=== PATIENT | female | born 2000 | race Caucasian/White ===

== ENCOUNTER 2024-07-31 14:22 | Emergency (ER) | payer OTHER ==
--- OUTSIDE RECORDS SUMMARY | 2024-07-31 14:33 | XMS REPORT | Continuity of Care Document ---
Author Name Unknown Address [address] [facility] [address] [place] [address] [facility] thconnect Address [address] [facility] [address] [place] [address] Care Team Providers Care Box Liner Name Role Phone Justino Mueller Primary Care Physician Un available Doctor Unassigned, [place] Attending Clinician U MYRIAM Rivera Attending Clinician Unavailable GC_GCBZW_Kadiyala_S Attending Clinician Unavaila ble Kadiyala, Karuna K Attending Clinician Unavaila ble YARIMA, WAKILI S Attending Clinician Unavailable JUSTINO CEBALLOS Attending Clinician Unavailab LUIS Freeman Attending Clinician Unavail able GC_GCBZW_Kadiyala_S Admitting Clinician Unavaila ble Kadiyala, Karuna K Admitting Clinician Unavaila ble YARIMA, WAKILI S Admitting Clinician Unavailable Payers Payer Name Policy Type Policy Number Effective Date Expirati on Date Source [facility] [id number] Problems Condition Name Condition Details Condition Category Status Onset Date Resolution Date Last Treatment Date Treating Clinician Comments Source Allergic reaction to drug, initial encounter Allergic reaction to drug, initial encounter Disease Active - 00:00: 00 Overview: Formattin g of this note might be different from the original. acute [facility] Left lower quadrant pain Left Lower Quadrant Pain Problem Active 2022-0 7-08 00:00: 00 [facility] Lump in upper outer quadrant of right breast Lump in Upper Outer Quadrant of Right Breast Problem Active 7-08 00:00: 00 [facility] Gynecologi carlo examinatio n abnormal Gynecologi carlo Examinatio n Abnormal Problem Active 7-08 00:00: 00 [facility] Deep pain on intercours e Deep Pain on Intercours e Problem Active 2020-09 1-23 00:00: 00 [facility] Dysmenorrh ea Dysmenorrh ea Problem Active 4- 00:00: 00 [facility] Polymenorr hea Polymenorr hea Problem Active 4- 00:00: 00 [facility] Excessive menstruati on with irregular cycle Excessive Menstruati on with Irregular Cycle Problem Active 4- 00:00: 00 [facility] Essential hypertensi on Essential Hypertensi on Problem Active 3-16 00:00: 00 [facility] Irregular periods Irregular Periods Problem Active 3-16 00:00: 00 [facility] Active immunizati on Active Immunizati on Problem Active 3-16 00:00: 00 [facility] Pelvic and perineal pain Pelvic and Perineal Pain Problem Active 3-16 00:00: 00 [facility] Polycystic ovary syndrome Polycystic Ovary Syndrome Problem Active 3-16 00:00: 00 [facility] Body mass index 30+ - obesity Body Mass Index 30+ - Obesity Problem Active 3-16 00:00: 00 [facility] Severe obesity Severe Obesity Problem Active 3-16 00:00: 00 [facility] BMI 40.0-44.9, adult BMI 40.0-44.9, adult Disease Active 1-05 00:00: 00 [facility] Well woman exam Well woman exam Disease Active 2018-09 00:00: 00 [facility] Encounter for initial prescripti on of injectable contracept javier Encounter for initial prescripti on of injectable contracept javier Disease Active 2018-09 00:00: 00 [facility] Morbid obesity Morbid obesity Disease Active 2018-09 00:00: 00 [facility] Allergies, Adverse Reactions, Alerts Allergy Name Allergy Type Status Severity Reaction(s) Onset Date Inactive Date Treating Clinician Comments Source AMOXICIL COURTNEY DRUG INGREDI Active Rash 03-24 00:00: 00 [facility] Amoxicil courtney Propensi ty to adverse reaction s Active Rash 03-24 00:00: 00 [facility] No Known Allergie s DA Active U 2021-09 0 00:00: 00 [facility] NO KNOWN ALLERGIE S Drug Class Active [facility] PENICILL INS Allergy to substanc e Active [facility] Social History Social Habit Start Date Stop Date Quantity Comments Source [facility]coh[facility] intake 2024-03-24 00:00:00 2024-03-24 00:00:00 Ex-drinker (finding) [facility] History of Social function 2020-09-15 00:00:00 2020-09-15 00:00:00 [facility] Tobacco use and exposure 2019-08-20 00:00:00 2019-08-20 00:00:00 Smokeless tobacco non-user [facility] Sex assigned at 2002 00:00:00 2000 00:00:00 [facility] Smoking Status Start Date Stop Date Source Smoker, Current Status Unknown [facility] Never smoked tobacco [facility] Medications Ordered Medication Name Filled Medication Name Start Date Stop Date Current Medication? Ordering Clinician Indication Dosage Frequency Signature (SIG) Comments Components Source meclizine (TRAVEL-EAS E (MECLIZINE) ) tablet 25 mg 03-24 19:45: 00 03-24 19:45 :00 No 25mg 25 mg, Oral, ONCE, 1 dose, On 03/24/24 at 1445, DION [facility] meclizine 25 mg tablet 03-24 00:00: 00 Yes [id number] 25mg Take 1 tablet by mouth 3 (three) times daily as needed (itching). [facility] losartan 100 mg tablet 09-15 13:44: 06 Yes 100mg Take 100 mg by mouth daily. [facility] trazodone HCl (TRAZODONE ORAL) 09-15 13:44: 06 Yes Take by mouth. [facility] norgestimat e-ethinyl estradioL 0.18/0.215/ 0.25 mg-25 mcg tablet 09-15 00:00: 00 Yes [id number] 1{tbl} Take 1 tablet by mouth daily. [facility] NUVARING (NUVARING) 0.12-0.015 mg/24 hr vaginal insert 2019-09 0 00:00: 00 Yes [id number] 1{each} Insert 1 Each into vagina once every month. Insert vaginally and leave in place for 3 consecutiv e weeks, then remove for 1 week. [facility] NUVARING (NUVARING) 0.12-0.015 mg/24 hr vaginal insert 9 00:00: 00 Yes [id number] 1{each} Insert 1 Each into vagina once every month. Insert vaginally and leave in place for 3 consecutiv e weeks, then remove for 1 week. [facility] albuterol sulfate HFA 90 mcg/actuati on aerosol inhaler INHALE 2 PUFFS BY MOUTH EVERY 4 HOURS NEEDED albuterol sulfate HFA 90 mcg/actuati on aerosol inhaler INHALE 2 PUFFS BY MOUTH EVERY 4 HOURS NEEDED No albuterol sulfate HFA 90 mcg/actuat ion aerosol inhaler INHALE 2 PUFFS BY MOUTH EVERY 4 HOURS NEEDED [facility] naproxen 500 mg tablet 1 tablet with food or milk as needed; three times a day; 10 days naproxen 500 mg tablet 1 tablet with food or milk as needed; three times a day; 10 days No naproxen 500 mg tablet 1 tablet with food or milk as needed; three times a day; 10 days [facility] Nexplanon 68 mg subdermal implant Inject 1 implant by subcutaneou s route. Nexplanon 68 mg subdermal implant Inject 1 implant by subcutaneou s route. No 1implan t(s) Nexplanon 68 mg subdermal implant Inject 1 implant by subcutaneo us route. [facility] Immunizations Ordered Immunization Name Filled Immunization Name Date Status Comments Source HIB 4 Dose Schedule Unknown Completed [facility] HPV Unknown Completed [facility] Influenza Virus Vaccine Unknown Completed [facility] Meningococcal Vaccine Unknown Completed [facility] MMR Unknown Completed [facility] Pneumococcal 13 Conjugate, PCV13 (Prevnar 13) Unknown Completed [facility] Polio (IPV/OPV) Unknown Completed [facility] TDAP Unknown Completed [facility] Varicella (varivax)(chicken pox) Unknown Completed [facility] DTAP Unknown Completed [facility] HIB 4 Dose Schedule Unknown Completed [facility] HEPATITIS A Unknown Completed [facility] Hep B, Adol or Pedi Dosage Unknown Completed [facility] HPV Unknown Completed [facility] Influenza Virus Vaccine Unknown Completed [facility] Meningococcal Vaccine Unknown Completed [facility] MMR Unknown Completed [facility] Pneumococcal 13 Conjugate, PCV13 (Prevnar 13) Unknown Completed [facility] Polio (IPV/OPV) Unknown Completed [facility] TDAP Unknown Completed [facility] Varicella (varivax)(chicken pox) Unknown Completed [facility] DTAP Unknown Completed [facility] HEPATITIS A Unknown Completed [facility] Hep B, Adol or Pedi Dosage Unknown Completed [facility] Vital Signs Vital Name Observation Time Observation Value Comments S ource BP Diastolic 2024-06-25 00:00:00 77 mm[Hg] [facility] Body Weight 2024-06-25 00:00:00 169.8 [lb_av] [facility] BMI (Body Mass Index) 2024-06-25 00:00:00 28.3 kg/m2 [facility] Height 2024-06-25 00:00:00 65 [in_i] [facility] BP Systolic 2024-06-25 00:00:00 129 mm[Hg] [facility] Body Weight 2024-05-15 00:00:00 169.8 [lb_av] [facility] Height 2024-05-15 00:00:00 65 [in_i] [facility] BP Diastolic 2024-05-15 00:00:00 76 mm[Hg] [facility] BP Systolic 2024-05-15 00:00:00 115 mm[Hg] [facility] BMI (Body Mass Index) 2024-05-15 00:00:00 28.3 kg/m2 [facility] BP Diastolic 2024-04-30 00:00:00 65 mm[Hg] [facility] Height 2024-04-30 00:00:00 65 [in_i] [facility] BP Systolic 2024-04-30 00:00:00 113 mm[Hg] [facility] BMI (Body Mass Index) 2024-04-30 00:00:00 28.3 kg/m2 [facility] Body Weight 2024-04-30 00:00:00 169.8 [lb_av] [facility] Systolic blood pressure 2024-03-24 19:42:00 136 mm[Hg] [facility] Diastolic blood pressure 2024-03-24 19:42:00 69 mm[Hg] [facility] Heart rate 2024-03-24 19:42:00 83 /min [facility] Body temperature 2024-03-24 19:42:00 36.89 Rachel [facility] Respiratory rate 2024-03-24 19:42:00 16 /min [facility] Body height 2024-03-24 19:42:00 165.1 cm [facility] Body weight 2024-03-24 19:42:00 77.111 kg [facility] BMI 2024-03-24 19:42:00 28.29 kg/m2 [facility] Oxygen saturation in Arterial blood by Pulse oximetry 2024-03-24 19:42:00 97 /min [facility] BP Systolic 2024-03-05 00:00:00 124 mm[Hg] [facility] Body Weight 2024-03-05 00:00:00 167.2 [lb_av] [facility] BMI (Body Mass Index) 2024-03-05 00:00:00 27.8 kg/m2 [facility] BP Diastolic 2024-03-05 00:00:00 72 mm[Hg] [facility] Height 2024-03-05 00:00:00 65 [in_i] [facility] Encounters Start Date/Time End Date/Time Encounter Type Admission Type Attending Clinicians Care Facility Care Department Encounter ID Source 2024-06-25 00:00:00 2024-06-25 00:00:00 MALINDA Macdonald: [address], [place] [address] , Ph. [facility] - GC_GCBZW_Katrin emily Branch* [id number] [facility] 2024-05-15 00:00:00 2024-05-15 00:00:00 MALINDA Farrell: [address], [place] [address] , Ph. [facility] GC_GCBZW_Katrin Branch* [id number] [facility] 2024-03-28 00:00:00 2024-05-04 18:25:48 Patient Secure Msg Doctor Unassigned, [place] Doctor Unassigned, [place] [facility] .[id number] [facility] 2024-04-30 00:00:00 2024-04-30 00:00:00 MALINDA Macdonald: [address], [place] [address] , Ph. 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 [facility] - GC_GCBZW_La emily Branch* [id number] [facility] 2023-04-19 00:00:00 2023-04-19 00:00:00 Outpatient GC_GCBZW_Ka diyala_S PRIV PRIV [id number] [facility] 2023-04-19 00:00:00 2023-04-19 00:00:00 Outpatient GC_GCBZW_Ka diyala_S PRIV PRIV [id number] [facility] 2023-03-23 00:00:00 2023-03-23 00:00:00 Outpatient GC_GCBZW_Ka diyala_S PRIV PRIV [id number] [facility] 2022-07-14 05:59:00 2022-07-14 05:59:[address] [facility] [id number] [facility] 2021-02-07 21:36:00 2021-02-08 01:38:00 Emergency X HU BYERS [facility] E[facility] [id number] [facility] 2020-12-17 13:15:00 2020-12-17 13:15:00 Outpatient JUSTINO HANSON [facility] [id number] [facility] 2020-09-15 13:45:00 2020-09-15 13:45:00 Outpatient JUSTINO HANSON [facility] [id number] [facility] 2020-09-02 14:45:00 2020-09-02 14:45:00 Outpatient JUSTINO HANSON [facility] [id number] [facility] 2020-06-03 13:00:00 2020-06-03 13:00:00 Outpatient LUIS STUART [facility] [id number] [facility] 2020-02-26 09:15:00 2020-02-26 09:15:00 Outpatient JUSTINO HANSON [facility] [id number] [facility] 2020-02-21 13:00:00 2020-02-21 13:00:00 Outpatient Ashleigh [facility] [id number] [facility] 2020-02-21 08:30:00 2020-02-21 08:30:00 Outpatient JUSTINO HANSON [facility] [id number] [facility] 2019-12-03 16:00:00 2019-12-03 16:00:00 Outpatient JUSTINO HANSON [facility] [id number] [facility] Results Test Description Test Time Test Comments Results Result Co mments Source COVID 19 INHOUSE [id number] 07:18:00* Test Item Value Reference Range Interpretation Comme nts COVID 19 INHOUSE AG (test code = [id number]) NEGATIVE Negative Per instructional design manager , negative results should be treated aspresumptive and, if inconsistent with clinical signs andsymptoms or necessary for patient management, should betested with an alternative molecular assay. Negative resultsdo not preclude SARS-CoV-2 infection and should not be usedas the sole basis for patient management decisions. Negative results should be considered in the context of apatient's recent exposures, history, presence of clinicalsigns and symptoms consistent with COVID-19. COVID 19 INHOUSE [id number] 17:01:00* Test Item Value Reference Range Interpretation Comme nts COVID 19 INHOUSE AG (test code = [id number]) NEGATIVE Negative Per instructional design manager , negative results should be treated aspresumptive and, if inconsistent with clinical signs andsymptoms or necessary for patient management, should betested with an alternative molecular assay. Negative resultsdo not preclude SARS-CoV-2 infection and should not be usedas the sole basis for patient management decisions. Negative results should be considered in the context of apatient's recent exposures, history, presence of clinicalsigns and symptoms consistent with COVID-19. CBC W/AUTO [id number] 16:51:00* Test Item Value Reference Range Interpretation Comme nts WHITE BLOOD CELL (test code = WBC) 7.8 K/mm3 3.5-11.0 N RED BLOOD CELL (test code = RBC) 4.93 M/mm3 4.70-6.10 N HEMOGLOBIN (test code = HGB) 15.0 G/DL 10.4-14.9 H HEMATOCRIT (test code = HCT) 45.6 % 31.5-44.1 H MEAN CELL VOLUME (test code = MCV) 92.5 Fl 84.5-98.6 N MEAN CELL HGB (test code = MCH) 30.4 pg 27.0-34.2 N MEAN CELL HGB CONCETRATION (test code = MCHC) 32.9 G/DL 31.5-34.0 N RED CELL DISTRIBUTION WIDTH (test code = RDW) 12.1 SD 11.5-14.5 N PLATELET COUNT (test code = PLT) 322 K/mm3 150-450 N MEAN PLATELET VOLUME (test c ode = MPV) 9.10 fL 7.0-10.5 N NEUTROPHIL % (test code = NT%) 69.7 % 24.0-85.0 N IMMATURE GRANULOCYTE % (test code = IG%) 0.1 % 0.0-5.0 N LYMPHOCYTE % (test code = LY%) 21.7 % 20.5-51.1 N MONOCYTE % (test code = MO%) 6.8 % 1.7-9.3 N EOSINOPHIL % (test code = EO%) 1.2 % 0.0-6.0 N BASOPHIL % (test code = BA%) 0.5 % 0.0-2.0 N NUCLEATED RBC % (test code = NRBC%) 0.0 /100WBC% 0.0-1.0 N NEUTROPHIL # (test code = NT#) 5.4 K/mm3 1.8-7.6 N IMMATURE GRANULOCYTE # (test code = IG#) 0.01 x10 3/uL 0.00-0.03 N LYMPHOCYTE # (test code = LY#) 1.7 K/mm3 0.6-3.2 N MONOCYTE # (test code = MO#) 0.5 K/mm3 0.3-1.1 N EOSINOPHIL # (test code = EO#) 0.1 K/mm3 0.0-0.4 N BASOPHIL # (test code = BA#) 0.0 K/mm3 0.0-0.1 N NUCLEATED RBC # (test code = NRBC#) 0.0 K/mm3 0.0-0.1 N MANUAL DIFF REQUIRED (test c ode = MDIFF) NO DIFF/SCN CRITERIA URINALYSIS [id number] 16:43:00* Test Item Value Reference Range Interpretation Comme nts UA GLUCOSE DIPSTICK (test code = DGLUU) NEGATIVE mg/dL NEG UA BILIRUBIN DIPSTICK (test code = BILU) 1+ mg/dL NEG A UA KETONE DIPSTICK (test code = KETU) TRACE mg/dL NEG UA SPECIFIC GRAVITY (test code = SGU) 1.020 SG 1.005-1.030 UA BLOOD DIPSTICK (test code = JAS) NEGATIVE mg/DL NEG UA PH DIPSTICK (test code = POLO) 6.5 pH UNITS 5.0-7.0 UA PROTEIN DIPSTICK (test code = PROU) TRACE mg/dL NEG A UA UROBILINIOGEN DIPSTICK (test code = URO) 0.2 mg/dL <2.0 UA NITRITE DIPSTICK (test code = NUZHAT) NEGATIVE SCREEN NEG UA LEUKOCYTE ESTERASE DIPSTICK (test code = LEUU) NEGATIVE Leuk/mcL NEGATIVE Urine Specimen Type: Clean CatchUR HCG [id number] 16:43:00* Test Item Value Reference Range Interpretation Comme nts UR HCG QUAL (test code = HCGQLU) NEGATIVE NEGATIVE Urine Specimen Type: Clean Catch Notes Date/Time Note Provider Source 2024-03-24 14:49:19 Pt discharged with diagnosis of allergic reaction to drug. Printed and verbal instructions reviewed with and given to pt. Prescriptions given x 1. Pt verbalized understanding of teaching, medication, and recommended follow-up. Denies questions or concerns at this time. Pt ambulatory at discharge. Appears in no apparent distress. No ataxia noted. T [facility] 2024-03-24 14:41:38 Pt to ED CO generalized painful and itchy rash after taking amoxicillin for URI/ear infxn/sinus infection. No changes in airway/throat. Katlyn Ash RN [facility] 2022-07-14 23:04:00 [id number] [address] PATIENT NAME: VALE HEWITT ADMIT DATE: 07/14/22 ACCOUNT NO: [id number] ROOM NO: AGE: 22 REPORT TYPE: OPERATIVE REPORT SEX: F ADMITTING PHYSICIAN: ATTENDING PHYSICIAN: Karuna Chamorro MD OPERATION DATE: 07/14/2022 PREOPERATIVE DIAGNOSES: Pelvic pain, left lower quadrant pain, irregular periods and deep dyspareunia. POSTOPERATIVE DIAGNOSES: Pelvic pain, left lower quadrant pain, irregular periods and deep dyspareunia. 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 PROCEDURES PERFORMED: 1. Diagnostic hysteroscopy. No need for a D and C as the cavity was unremarkable. No intracavitary lesions. Lining appeared to be thin. 2. Diagnostic laparoscopy, endometriosis excision and right ovarian mass removal, and lysis of right tubal adhesions. SURGEON: Karuna Chamorro M.D. CUSTOM GARMENT DESIGNER: Eloina Purcell PA-C. ESTIMATED BLOOD LOSS: Minimal. SPECIMENS: 1. Anterior abdominal wall Endo. 2. Right ovarian mass, possible suspected fibroma. 3. Right tubal adhesions. 4. Right lateral wall Endo. 5. Posterior vaginal wall Endo. 6. Left lateral wall Endo. 7. Anterior cul-de-sac endometriosis implants. COMPLICATIONS: No complications. DRAINS: None. The patient's condition is stable. FINDINGS: Anterior abdominal wall, right where the urachal remnant would be present. There were anterior abdominal wall peritoneal endometriotic implants. These were completely excised. The right ovarian mass which she suspected of fibroma and was excised. Then, a right peritubal adhesions were found to the anterior cul-de-sac as well to the anterior peritoneum of the pelvis. This was excised and there were adhesions in the posterior aspect as well, but that were PATIENT NAME: VALE HEWITT excised. Then, right lateral wall had endometriotic implants that were very superficial. On the posterior vaginal wall, there was nodular endo infiltrating into the posterior wall; however, not full thickness and that has not progressed to the rectum and the entire implant is resumed to be excised. Left lateral wall endometriosis. There was deep infiltrating tissue, which was from the underlying ureter and excised. Then anterior cul-de-sac on the right side of the bladder peritoneum was completely excised. DESCRIPTION OF PROCEDURE: After informed consent was verified, she was taken back to the OR, placed in a supine fashion on the operating table. General anesthesia was given. She was placed in dorsal lithotomy position using Stan stirrups. Abdomen, vulva, vagina, and perineum were prepped and draped in a sterile fashion. Hathaway was placed to drain the bladder. After timeout was done and SCDs were started, no antibiotics were given as they were not indicated for the sterile procedure. Procedure was started. Speculum placed to expose the cervix. Anterior lip was grasped with 2 Allis clamps. Cervix had to be dilated, anteflex cavity from 8-Egyptian all the way to 14-Egyptian and a diagnostic hysteroscope was introduced into the uterus. Cavity was unremarkable and normal. No intracavitary lesions. In fact, the endometrium appeared to be very thin. There was no need for sampling. After the scope was removed, uterine manipulator was introduced and placed and fixed in place. This area was draped. One centimeter supraumbilical incision 15 cm from the pubic symphysis was placed. Fascia was incised, tagged with 0 Vicryl sutures and the peritoneum entered sharply. After the robotic Lan was introduced, the site of entry was checked and was unremarkable after adequate insufflation and a right upper quadrant AirSeal port was placed, and then 2 robotic ports that are 8 mm on each side about 10 cm from the umbilical incision were made under direct vision after injecting with 0.25% Marcaine at entry and exit at the level of the fascia and skin. Upper abdomen was unremarkable. The patient was placed in Trendelenburg. The appendix appeared to be unremarkable as well. Tubes and both ovaries were visualized, had physiologic cysts that were tiny unremarkable. A small right ovarian fibroma was noted. Then endometriosis was seen on the anterior cul-de-sac, anterior abdominal wall, both lateral spain and nodular Endo and posterior vaginal wall, likely explains her dyspareunia, not involving the cul-de-sac yet and on the left side, the implant extended all the way to the area just underneath the infundibulopelvic ligament. After docking the robot the patient was placed in Trendelenburg 20 degrees. The robotic camera arm in the center was docked. Camera was introduced targeting was done. Once this was complete, the arms were attached on arms, 2 and 4 under direct vision and a bipolar grasper and scissors respectively in each arm were advanced under direct vision after the ports were burped and was ready to go to the console. At the console, started my procedure by inspecting the pelvic findings again and once all these were confirmed, then started to excise the endometriosis, started with anterior abdominal wall endometriosis that started with the remnants of the PATIENT NAME: VALE HEWITT umbilical artery. The peritoneum was picked up and excised carefully and dissected the retroperitoneum avoiding the retroperitoneum as well as bladder. The entire set of implants were excised and handed off for permanent pathology. Attention was directed to the right ovary. The fibroma was excised and handed off with the help of the tip of the scissors. Then, the right tubal adhesions were removed from their attachment to the anterior broad ligament and anterior abdominal wall. The pelvis and the right lateral wall, the posterior broad ligament was exposed. The endometriosis was medial to the distal ureter in between that and the uterosacral. This was excised completely by the underlying structures like the uterine vessels as well as the ureter. Once this was stripped and handed out then attention directed to the posterior vaginal wall, where infiltrating endometriosis and an implant was present. This was completely excised circumferentially by dissecting carefully with the tip of monopolar scissors using a single time. The entire implant was excised and normal tissue was seen. Then, attention directed to the left lateral wall. The implants were lateral to the ureter and superior. The peritoneum was tented and incised and the entire implants were excised all the way close to the insertion of the IP to the ovary. After all this was stripped carefully dissection was performed to separate the deeper endometriotic implants from the underlying tissues and making sure that all endo was excised. Attention was directed to the anterior cul-de-sac. This endometrium was picked up and tented and the bladder dissection was performed, retracting inferiorly and entire implant was excised and handed off for permanent pathology. There were adhesions in the posterior vaginal wall, left lateral wall as well and these were all picked up and excised. They did not retrieve the specimens. After the entire procedure was done, thorough irrigation and suction was performed in the pelvic cavity. All the sites were visualized and is unremarkable and hemostatic. No evidence of any electrical mechanical or thermal injury to the bowel, bladder, ureters. The patient was taken out of Trendelenburg. Ports were removed under direct vision. All the gas was desufflated. I injected with Marcaine, after the AirSeal port was removed, Lan was removed and the fascia was closed with the help of the tagged 0 Vicryl sutures tied to each other. Once this was done and there was good closure, then closed all the incisions at the skin with interrupted 4-0 Vicryl sutures. Uterine manipulator and Hathaway were removed. Instrument, needle and sponge counts were correct. She was recovered from anesthesia and taken to PACU in stable condition. Her father and daughter attended and present in the room and were briefed about her main findings. She will have discussion of this at her one week followup appointment. Prescription sent. Dictated By: Karuna Chamorro MD Date Dictated: 07/14/2022 23:04:50 Date Transcribed: 07/15/2022 01:17:59 KERMIT/ADALGISA PATIENT NAME: VALE HEWITT Receipt ID: [id number] Authenticated by Karuna Chamorro MD On 08/11/2022 11:31:39 AM at 1131 PATIENT NAME: VALE HEWITT [facility] 2022-07-14 09:02:00 [facility] ([facility]) Brief Op Note REPORT#:[id number] REPORT STATUS: Signed DATE:07/14/22 TIME:901 PATIENT: VALE HEWITT UNIT #: [id number] ROOM/BED: : 02 AGE: 22 SEX: F ATTEND: Karuna Chamorro MD ADM AUTHOR: Karuna Chamorro MD * ALL edits or amendments must be made on the electronic/computer document * Op/Inv Proc Note - Brief Pre-procedure diagnosis: AUB-O, Dysmenorrhea, dyspareunia, LLQ pelvic pain Post-procedure diagnosis: same as pre procedure dx, endometriosis Procedures performed: Diag hysteroscopy, diagnostic laparoscopy endometriosis excision, rt ovarian mass removal Primary Surgeon: rosa elena [employer] Attendant(s): Val Purcell Anesthesia: general anesthesia Findings: endometirosis and right ovarian fibroma Complications: none Estimated blood loss in ml's: none Specimens removed/altered: ant abd wall, rt ovarian mass, rt tubal adhesions, rt lateral wall , post vaginal wall, left lateral wall , anterior CDS endometriosis Approach: robotic Wound class: clean Disposition: plan to D/C home Counts: Sponge count: correct Instrument count: correct Needle count: correct at 1257 RPT #: [id number] [facility]
[2024-07-31] MEDS ORDERED: ONDANSETRON 4 MG (ODT) TAB ONE (14:58)
[2024-07-31 15:38] LABS: SARS-CoV-2 Antigen CONTROL BLUE LINE VIS/BG OK; SARS-CoV-2 Antigen Rapid Res Negative (Negative)
--- NOTE | 2024-07-31 16:24 | EDPHYS ---
Physician Documentation [facility] Name: Lin Boyle Age: 24 yrs Sex: Female : 2000 Arrival Date: 07/31/2024 Time: 14:22 Bed 11 Private MD: ED Physician Gabino Escobedo HPI: 07/31 16:21 This 24 yrs old Female presents to ER via Ambulatory with complaints of Sinus rn Congestion. 16:21 The patient or guardian reports flu symptoms. rn 16:37 Onset: The symptoms/episode began/occurred 2 day(s) ago. Severity of symptoms: At their rn worst the symptoms were mild, in the emergency department the symptoms are unchanged. Modifying factors: The symptoms are alleviated by nothing, the symptoms are aggravated by nothing. The patient has not experienced similar symptoms in the past. Patient reports 2 days of cough, congestion, headache, myalgias and fever. Exposed to 2 people at work with similar symptoms.. 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 - Infectious Disease History:: Denies. - Social history:: Smoking status: Patient reports the use of cigarette tobacco products, smokes one-half pack cigarettes per day, Reported history of juuling and/or vaping. - Family history:: not pertinent. - Hospitalizations: : No recent hospitalization is reported. ROS: 16:37 Constitutional: Negative for fever, chills, and weight loss, ENT: Positive for sinus rn congestion and sore throat Cardiovascular: Negative for chest pain, palpitations, and edema, Respiratory: Negative for shortness of breath, wheezing, and pleuritic chest pain, Abdomen/GI: Negative for abdominal pain, diarrhea, and constipation, MS/Extremity: Negative for injury and deformity, Skin: Negative for injury, rash, and discoloration, Neuro: Negative for headache, weakness, numbness, tingling, and seizure, Exam: 16:37 Constitutional: This is a well developed, well nourished patient who is awake, alert, rn and in no acute distress. ENT: Moist mucous membranes Cardiovascular: Regular rate and rhythm. No pulse deficits. Respiratory: No increased work of breathing, no retractions or nasal flaring. Abdomen/GI: Soft, nontender Vital Signs: 14:55 BP 141 / 92; Pulse 84; Resp 17; Temp 97.1; Pulse Ox 100% on R/A; Weight 72.57 kg; ll1 Height 5 ft. 5 in. ; Pain 4/10; 16:37 BP 141 / 81; Pulse 81; Resp 17; Pulse Ox 100% ; Pain 0/10; ll1 14:55 Body Mass Index 26.63 (72.57 kg, 165.1 cm) ll1 14:55 Pain Scale: Adult ll1 16:37 Pain Scale: Adult ll1 MDM: 14:26 Medical Screening Exam initiated rn 16:37 Differential Diagnosis: Influenza Upper Respiratory Infection Sinusitis Pharyngitis. rn Data reviewed: vital signs, lab test result(s), and as a result, I will discharge patient. Counseling: I had a detailed discussion with the patient and/or guardian regarding the historical points, exam findings, and any diagnostic results supporting the discharge/admit diagnosis, lab results, the need for outpatient follow up, to return to the emergency department if symptoms worsen or persist or if there are any questions or concerns that arise at home. Special discussion: I discussed with the patient/guardian in detail that at this point there is no indication for admission to the hospital. It is understood, however, that if the symptoms persist or worsen the patient needs to return immediately for re-evaluation. 07/31 14:42 Order name: SARS-COV-2 Antigen Rapid; Complete Time: 16:19 rn 07/31 14:42 Order name: Flu; Complete Time: 16:19 rn 07/31 14:42 Order name: Strep rn 07/31 15:40 Order name: Throat Culture EDMS Administered Medications: 15:06 Drug: Ondansetron Oral Disintegrating Tablet Oral Disintegrating Tablet 4 mg PO once ll1 Route: PO; 15:36 Follow up: Response: No adverse reaction ko1 16:20 Follow up: Response: No adverse reaction; Nausea is decreased ll1 Disposition Summary: 07/31/24 16:24 Discharge Ordered Notes: Location: Home rn Problem: new rn Symptoms: have improved rn Condition: Stable rn Diagnosis - Influenza due to identified novel influenza A virus rn Followup: rn - With: Private Physician - When: As needed - Reason: Recheck today's complaints, Re-evaluation by your physician Discharge Instructions: - Discharge Summary Sheet rn - Influenza, Adult, Ceot-ve-Sygw rn Forms: - Medication Reconciliation Form rn - Antibiotic rn documentation - Prescription Opioid Use rn - Patient Portal Instructions rn - Leadership Thank You Letter rn Prescriptions: - Tamiflu 75 mg Oral capsule - take 1 tablet ORAL route every 12 hours for 5 days; 10 tablet; Refills: 0, rn Product Selection Permitted Signatures: Dispatcher [employer] EDMS Gabino Escobedo MD MD rn Lewis, Lynsay, RN RN ll1 Constanza Mann RN ko1 Corrections: (The following items were deleted from the chart) 14:43 14:43 SARS-COV-2 Antigen Rapid+I.LAB.BRZ ordered. EDMS EDMS 14:43 14:43 Influenza Screen (A \T\ B)+BA.LAB.BRZ ordered. EDMS EDMS 14:43 14:43 Group A Streptococcus Rapid Sc+BA.LAB.BRZ ordered. EDMS EDMS
--- NOTE | 2024-07-31 16:24 | ER ---
Nurse's Notes [facility] Name: Lin Boyle Age: 24 yrs Sex: Female : 2000 Arrival Date: 07/31/2024 Time: 14:22 Bed 11 Private MD: Diagnosis: Influenza due to identified novel influenza A virus Presentation: 07/31 14:55 Chief complaint: Patient states: Cough, congestion, body aches for 4 days. No known ll1 fever. Coronavirus screen: Client denies travel out of the [place] in the last 14 days. congestion, cough unrelated to allergies, fatigue, muscle pain, Client presents with at least one sign or symptom that may indicate coronavirus-19. Standard/surgical mask placed on the client. Ebola Screen: Patient denies travel to an Ebola-affected area in the 21 days before illness onset. Initial Sepsis Screen: Does the patient meet any 2 criteria? No. Patient's initial sepsis screen is negative. Does the patient have a suspected source of infection? No. Patient's initial sepsis screen is negative. Risk Assessment: Do you want to hurt yourself or someone else? Patient reports no desire to harm self or others. Onset of symptoms was July 27, 2024. 14:55 Method Of Arrival: Ambulatory ll1 14:55 Acuity: JAGDISH 4 ll1 Triage Assessment: 14:55 General: Appears uncomfortable, Behavior is calm, cooperative, appropriate for age. ll1 Pain: Complains of pain in head Quality of pain is described as aching. EENT: Reports nasal discharge. Respiratory: Reports cough that is. 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 - Infectious Disease History:: Denies. - Social history:: Smoking status: Patient reports the use of cigarette tobacco products, smokes one-half pack cigarettes per day, Reported history of juuling and/or vaping. - Family history:: not pertinent. - Hospitalizations: : No recent hospitalization is reported. Screenin:38 [facility] ED Fall Risk Assessment (Adult) History of falling in the last 3 months, ll1 including since admission No falls in past 3 months (0 pts) Confusion or Disorientation No (0 pts) Intoxicated or Sedated No (0 pts) Impaired Gait No (0 pts) Mobility Assist Device Used No (0 pt) Altered Elimination No (0 pt) Score/Fall Risk Level 0 - 2 = Low Risk Maintained a safe environment, Hourly rounding (assess needs \T\ fall precautionary measures) done. Abuse screen: Denies threats or abuse. Nutritional screening: No deficits noted. Tuberculosis screening: No symptoms or risk factors identified. Assessment: 16:37 Reassessment: No changes from previously documented assessment. Patient and/or family ll1 updated on plan of care and expected duration. Pain level reassessed. Patient is alert, oriented x 3, equal unlabored respirations, skin warm/dry/pink. Patient states feeling better. Vital Signs: 14:55 BP 141 / 92; Pulse 84; Resp 17; Temp 97.1; Pulse Ox 100% on R/A; Weight 72.57 kg; ll1 Height 5 ft. 5 in. ; Pain 4/10; 16:37 BP 141 / 81; Pulse 81; Resp 17; Pulse Ox 100% ; Pain 0/10; ll1 14:55 Body Mass Index 26.63 (72.57 kg, 165.1 cm) ll1 14:55 Pain Scale: Adult ll1 16:37 Pain Scale: Adult ll1 ED Course: 14:24 Patient arrived in ED. mr 14:26 Gabino Escobedo MD is Attending Physician. rn 14:54 Arm band placed on. ll1 14:56 Triage completed. ll1 15:06 SARS-COV-2 Antigen Rapid Sent. ll1 15:06 Flu Sent. ll1 15:06 Strep Sent. ll1 16:15 Patient placed in an exam room, on a stretcher. ll1 16:38 Patient has correct armband on for positive identification. Provided Education on: ll1 return to ED for worsening symptoms. 16:38 No provider procedures requiring assistance completed. Patient did not have IV access ll1 during this emergency room visit. Administered Medications: 15:06 Drug: Ondansetron Oral Disintegrating Tablet Oral Disintegrating Tablet 4 mg PO once ll1 Route: PO; 15:36 Follow up: Response: No adverse reaction ko1 16:20 Follow up: Response: No adverse reaction; Nausea is decreased ll1 Medication: 16:38 VIS not applicable for this client. ll1 Outcome: 16:24 Discharge ordered by . rn 16:38 Discharged to home ambulatory, ll1 16:38 Condition: stable 16:38 Discharge instructions given to patient, Instructed on discharge instructions, follow up and referral plans. medication usage, Demonstrated understanding of instructions, follow-up care, medications, Prescriptions given X 1, 16:39 Patient left the ED. ll1 Signatures: Ching Hayes Reg Reg mr Gabino Escobedo MD MD rn Lewis, Lynsay, RN RN ll1 Constanza Mann RN RN ko1
[2024-07-31 17:08] VITALS: BP 141/81; O2SAT 100
[2024-07-31 17:10] VITALS: TEMP 97.1
== END 2024-07-31 16:39 | disposition home or self-care (01) ==
LOC: ER 14:22
DX: J10.1 Influenza due to other identified influenza virus with other respiratory manifestations (principal); F17.210 Nicotine dependence, cigarettes, uncomplicated; Z11.52 Encounter for screening for COVID-19
CPT/HCPCS: 87070; 36415; 87081; 87804 ×2; 99283; 87811; Q0162